=== PATIENT | female | born 1955 | race Caucasian/White ===

== ENCOUNTER 2023-11-15 06:11 | Day surgery (SDC) | payer OTHER ==
[2023-11-10 11:38] LABS: HEMATOCRIT 35.6 % (36.0-45.00); MEAN CELL VOLUME 99.2 fL (80.00-100.00); MEAN CORPUSCULAR HEMOGLOBIN 33.4 pg (27.00-32.0); MEAN CORPUSCULAR HGB CONC 33.7 g/dl (32.0-36.0); PLATELET COUNT 223 K/uL (150-450); RED BLOOD COUNT 3.59 M/uL (4.00-6.00); RED CELL DISTRIBUTION WIDTH 13.9 % (11.5-14.5)
[2023-11-10 12:15] LABS: ALBUMIN 4.1 gm/dL (3.4-5.0); BILIRUBIN TOTAL 0.67 mg/dL (0.3-1.2); CALCIUM 10.2 mg/dL (8.5-10.1); CREATININE SERUM 1.28 mg/dL (0.55-1.02); GFR 41.35; GLOBULINA 3.9 G/DL (2.4-3.5); POTASSIUM 4.5 mEq/L (3.5-5.1)
[2023-11-10 12:17] LABS: INR 1.02; PARTIAL THROMBOPLASTIN TIME 26.9 SECONDS (22.0-34.0); PROTHROMBIN TIME 10.7 SECONDS (9.0-11.5)
[2023-11-10 12:31] LABS: URINE APPEARANCE Cloudy; URINE BILIRRUBIN Negative (NEGATIVE); URINE BLOOD Negative; URINE COLOR Yellow; URINE LEUKOCYTE Moderate; URINE NITRATE Positive; URINE PROTEIN Negative (NEGATIVE); URINE UROBILINOGEN 0.2 E.U./dl
[2023-11-10 12:35] LABS: URINE EPITHELIAL CELLS 3.4 uL (0.0-38.8); URINE RBC 2.5 uL (0.0-20.8); URINE WBC 678.1 uL (0.0-23.2)
[2023-11-10 12:48] LABS: URINE BACTERIA > 9821.5 uL (0.0-1933); URINE GLUCOSE >=1000 MG/DL (NEGATIVE)
[~2023-11-15] VITALS: Ht 160 cm; Wt 73.9 kg
[~2023-11-15 06:11] MED LIST: AVAPRO300 MG PO; HUMULIN 70100 UNIT/2 IJ; KAPSPARGO SPRIN50 MG PO; PAXIL10 MG/5 ML PO; PLAVIX75 MG
[2023-11-15] MEDS ORDERED: CEFAZOLIN SODIUM 1,000 MG VIAL ONE (10:23)
[2023-11-15] MEDS ORDERED: CEFAZOLIN SODIUM 1,000 MG VIAL IV ONE (12:15)
[2023-11-15] MEDS ORDERED: SUGAMMADEX SODIUM 200 MG/2 ML VIAL IV ONE ×2 (13:03→13:15)
[2023-11-15] MEDS ORDERED: ENALAPRILAT DIHYDRATE 1.25 MG/ML VIAL IV ONE (13:58)
== END 2023-11-15 15:15 | disposition home or self-care (01) ==
LOC: CIR.AMB 06:11
PROVIDERS: ATTEND Surgery
DX: K81.1 Chronic cholecystitis (principal); Z88.6 Allergy status to analgesic agent

== ENCOUNTER 2024-11-21 08:34 | Emergency (ER) | payer OTHER ==
[~2024-11-21] VITALS: Ht 160 cm; Wt 68.5 kg
== END 2024-11-21 12:51 | disposition home or self-care (01) ==
LOC: ER 08:34
DX: G89.11 Acute pain due to trauma (principal); M25.562 Pain in left knee; M25.561 Pain in right knee; I10 Essential (primary) hypertension; E11.9 Type 2 diabetes mellitus without complications; Z79.4 Long term (current) use of insulin; Z88.6 Allergy status to analgesic agent

== ENCOUNTER 2025-02-09 10:12 | Outpatient (CLI) | payer OTHER | END 2025-02-09 10:20 | disposition home or self-care (01) | LOC: TOM 10:12 | DX: N20.0 Calculus of kidney (principal); N18.9 Chronic kidney disease, unspecified ==

== ENCOUNTER 2025-02-21 13:47 | Inpatient (IN) | payer OTHER ==
[~2025-02-21] VITALS: Ht 160 cm; Wt 78.0 kg
--- NOTE | 2025-02-21 16:09 | NUR ---
PTE ALERTA Y ORIENTADA X3 VIENE VERBALIZA TENER UN JARET DOLOR EN LOS RINONES ESTA ORINANDO SERENE Y VERBALIZA QUE TIENE JUAN EN LOS RINONEZ, S IVANEY ZACK S/V Y SE UBICA.
[2025-02-21] MEDS ORDERED: 0.9 % SODIUM CHLORIDE 500 ML IV ONE (16:45)
[2025-02-21] MEDS ORDERED: TAMSULOSIN HCL 0.4 MG CAP PO ONE ×2 (16:45→16:53)
[2025-02-21] MEDS ORDERED: ONDANSETRON HCL 2 MG/ML VIAL ONE (16:53)
[2025-02-21] MEDS ORDERED: CEFTRIAXONE SODIUM 2,000 MG VIAL ONE (16:54)
[2025-02-21] MEDS ORDERED: FAMOTIDINE/PF 20 MG/2 ML VIAL ONE (16:54)
[2025-02-21] MEDS ORDERED: CEFTRIAXONE SODIUM 2,000 MG VIAL IV ONE (17:00)
[2025-02-21] MEDS ORDERED: FAMOTIDINE/PF 20 MG/2 ML VIAL IV ONE (17:00)
[2025-02-21] MEDS ORDERED: ONDANSETRON HCL 2 MG/ML VIAL IV ONE (17:00)
--- NOTE | 2025-02-21 17:13 | NUR ---
SE ORIENTA PTE SOBRE TX MEDICO EL CUAL REFIERE ENTENDER.SE LE EXTRAEN MUESTRAS BAJO MEDIDAS ASEPTICAS,SE CANALIZA Y SE ADMINISTRAN MEDICAMENTOS.SE NOTIFICA CT PENDIENTE.SE ENTREGA ENVASE PARA UC PENDIENTE.
[2025-02-21 17:21] LABS: BASO % 0.3 % (0.1-1.2); EOS # 0.02 (0.04-0.54); EOS % 0.1 % (0.7-7.0); LYMPH # 0.87 (1.18-3.74); LYMPH % 5.5 % (19.3-53.1); MEAN PLATELET VOLUME 9.50 fl (9.4-12.4); MONO # 1.07 (0.24-0.82); MONO % 6.8 % (4.7-12.5); NEUT # 13.56 (1.56-6.13); NEUT % 86.4 % (34.0-71.1); RED CELL DISTRIBUTION WIDTH 12.6 % (11.6-14.4)
[2025-02-21 17:58] LABS: INR 1.09
[2025-02-21 18:04] LABS: COVID-19 AG NEGATIVE (NEGATIVE)
[2025-02-21 18:06] LABS: ALT/SGPT 20.0 U/L (12-78); AST/SGOT 12.0 U/L (15-37); BILIRUBIN TOTAL 0.69 mg/dL (0.3-1.2); BUN CREA RATIO 26.0 (7.0-25.0); CREATININE SERUM 1.52 mg/dL (0.55-1.02); GFR 33.81; GLOBULINA 4.6 G/DL (2.4-3.5); OSMOLALITY SERUM 291.0 MOSM/KG (275-295)
[2025-02-21 18:07] LABS: URINE APPEARANCE Cloudy; URINE BILIRRUBIN Negative (NEGATIVE); URINE BLOOD Large; URINE KETONE Negative (NEGATIVE); URINE LEUKOCYTE Large; URINE NITRATE Positive; URINE UROBILINOGEN 0.2 E.U./dl
[2025-02-21 18:08] LABS: URINE EPITHELIAL CELLS 9.6 uL (0.0-38.8); URINE RBC 646.8 uL (0.0-20.8); URINE WBC 828.3 uL (0.0-23.2)
[2025-02-21 18:10] LABS: GLUCOSE FASTING 204.0 mg/dL (65-100)
[2025-02-21 18:11] LABS: URINE BACTERIA > 9821.5 uL (0.0-1933); URINE CAST 0.14 uL (0.0-1.40); URINE GLUCOSE 250 MG/DL (NEGATIVE); URINE PROTEIN 100 (NEGATIVE)
[2025-02-21 18:33] LABS: URINE MUCUS MODERATE
[2025-02-21 18:37] LABS: URINE COLOR DK YELLOW
[2025-02-21 18:41] LABS: TYPE CELLS SQUAMOUS; URINE CRYSTALS FEW /HPF
[2025-02-21] MEDS ORDERED: INSULIN LISPRO 1,000 UNIT/10 ML UNITS SUBCUTANEO PRN ×2 (21:15→21:30)
[2025-02-21] MEDS ORDERED: 0.9 % SODIUM CHLORIDE 1,000 ML IV SCH (21:15)
[2025-02-21] MEDS ORDERED: ACETAMINOPHEN 500 MG GEL..CAP PO PRN (21:15)
[2025-02-21] MEDS ORDERED: MORPHINE SULFATE 4 MG/ML CARTRIDGE IV PRN (21:15)
[2025-02-21] MEDS ORDERED: DEXTROSE 50 % IN WATER 0.5 G/ML DISP.SYRIN IV PRN ×2 (21:15→21:30)
[2025-02-22 00:09] VITALS: BP 104/61; O2SAT 96
[2025-02-22 08:42] VITALS: BP 140/60
[2025-02-22] MEDS ORDERED: IRBESARTAN 150 MG TABLET PO SCH (09:00)
[2025-02-22] MEDS ORDERED: FAMOTIDINE/PF 20 MG in 0.9 % SODIUM CHLORIDE 8 ML IV PUSH SCH (09:00)
[2025-02-22] MEDS ORDERED: CEFTRIAXONE SODIUM 2,000 MG in 0.9 % SODIUM CHLORIDE 100 ML IV SCH (09:00)
[2025-02-22] MEDS ORDERED: METOPROLOL SUCCINATE 50 MG TAB.SR.24H PO SCH (09:00)
[2025-02-22] MEDS ORDERED: PAROXETINE HCL 10 MG TABLET PO SCH (09:00)
[2025-02-22] MEDS ORDERED: IRBESARTAN 300 MG TABLET PO SCH (09:00)
[2025-02-22 16:17] VITALS: BP 138/72
[2025-02-23] VITALS: BP 119/67; O2SAT 90
[2025-02-23 09:16] VITALS: BP 121/65
[2025-02-23 16:44] VITALS: BP 130/47; O2SAT 95
[2025-02-24 02:31] VITALS: BP 118/65; O2SAT 91
[2025-02-24 08:49] VITALS: BP 137/64; O2SAT 96
[2025-02-24 18:17] VITALS: BP 123/69; O2SAT 95
[2025-02-25 01:45] VITALS: BP 143/61; O2SAT 93
[2025-02-25 08:19] LABS: BASO % 0.5 % (0.1-1.2); EOS # 0.28 (0.04-0.54); EOS % 5.0 % (0.7-7.0); LYMPH # 1.08 (1.18-3.74); LYMPH % 19.1 % (19.3-53.1); MEAN PLATELET VOLUME 10.00 fl (9.4-12.4); MONO # 0.68 (0.24-0.82); MONO % 12.0 % (4.7-12.5); NEUT # 3.48 (1.56-6.13); NEUT % 61.6 % (34.0-71.1); RED CELL DISTRIBUTION WIDTH 12.7 % (11.6-14.4)
[2025-02-25 08:47] LABS: BUN CREA RATIO 29.0 (7.0-25.0); CREATININE SERUM 1.09 mg/dL (0.55-1.02); GFR 49.62; GLUCOSE FASTING 136.0 mg/dL (65-100); OSMOLALITY SERUM 296.0 MOSM/KG (275-295)
[2025-02-25 09:18] VITALS: BP 146/63; O2SAT 97
[2025-02-25 17:56] VITALS: BP 162/84; O2SAT 95
[2025-02-26 01:46] VITALS: BP 142/62; O2SAT 99
[2025-02-26 06:38] LABS: BASO % 0.6 % (0.1-1.2); EOS # 0.27 (0.04-0.54); EOS % 5.6 % (0.7-7.0); LYMPH # 1.16 (1.18-3.74); LYMPH % 24.3 % (19.3-53.1); MEAN PLATELET VOLUME 9.90 fl (9.4-12.4); MONO # 0.63 (0.24-0.82); NEUT # 2.58 (1.56-6.13); NEUT % 54.0 % (34.0-71.1); RED CELL DISTRIBUTION WIDTH 12.7 % (11.6-14.4)
[2025-02-26 07:24] LABS: MONO % 13.2 % (4.7-12.5)
[2025-02-26 08:09] VITALS: BP 154/77
[2025-02-26 16:01] LABS: ob NEGATIVE (NEGATIVE)
[2025-02-26 18:55] VITALS: BP 146/80; O2SAT 95
[2025-02-26 23:00] VITALS: BP 151/69; O2SAT 93
[2025-02-27] MEDS ORDERED: BUTALB/ACETAMINOPHEN/CAFFEINE 1 TAB TABLET PO STA (07:31)
[2025-02-27] MEDS ORDERED: BUTALB/ACETAMINOPHEN/CAFFEINE 1 TAB TABLET PO PRN (07:45)
[2025-02-27 09:26] VITALS: BP 117/70
[2025-02-27 10:24] LABS: BASO % 0.7 % (0.1-1.2); EOS # 0.28 (0.04-0.54); EOS % 4.6 % (0.7-7.0); LYMPH # 1.48 (1.18-3.74); LYMPH % 24.1 % (19.3-53.1); MEAN PLATELET VOLUME 9.80 fl (9.4-12.4); MONO # 0.65 (0.24-0.82); MONO % 10.6 % (4.7-12.5); NEUT # 3.45 (1.56-6.13); NEUT % 56.1 % (34.0-71.1); RED CELL DISTRIBUTION WIDTH 14.9 % (11.6-14.4)
[2025-02-27 11:07] LABS: BUN CREA RATIO 17.0 (7.0-25.0); CREATININE SERUM 0.93 mg/dL (0.55-1.02); GFR 59.6; OSMOLALITY SERUM 295.0 MOSM/KG (275-295)
[2025-02-27 11:18] LABS: GLUCOSE FASTING 217.0 mg/dL (65-100)
[2025-02-27 11:19] LABS: BAND MAN 5.0 %; LYMPHOCYTE MAN 25.0 %; MONOCYTE MAN 4.0 %; NEUTROPHILS MAN 56.0 %
[2025-02-27 11:20] LABS: EOSINOPHIL MAN 6.0 %
[2025-02-27] MEDS ORDERED: DEXTROSE 50 % IN WATER 0.5 G/ML VIAL IV PRN (14:00)
[2025-02-27 17:47] VITALS: BP 164/87
[2025-02-28 01:16] VITALS: BP 162/75; O2SAT 97
[2025-02-28 06:13] LABS: BASO % 0.8 % (0.1-1.2); EOS # 0.35 (0.04-0.54); EOS % 5.9 % (0.7-7.0); LYMPH # 1.71 (1.18-3.74); LYMPH % 29.0 % (19.3-53.1); MEAN PLATELET VOLUME 10.10 fl (9.4-12.4); MONO # 0.51 (0.24-0.82); MONO % 8.7 % (4.7-12.5); NEUT # 2.98 (1.56-6.13); NEUT % 50.7 % (34.0-71.1); RED CELL DISTRIBUTION WIDTH 14.8 % (11.6-14.4)
[2025-02-28 07:11] LABS: BAND MAN 8.0 %; LYMPHOCYTE MAN 26.0 %; MONOCYTE MAN 9.0 %; NEUTROPHILS MAN 48.0 %
[2025-02-28 07:12] LABS: EOSINOPHIL MAN 6.0 %; METAMYELOCYTE 1.0 %
[2025-02-28 08:55] VITALS: BP 166/84; O2SAT 93
== END 2025-02-28 11:27 | disposition home or self-care (01) | DRG 689 ==
LOC: ER 14:15 → MEDI 21:31 → SEC-K 21:31 → MEDI 23:25
PROVIDERS: General Practice; Student in an Organized Health Care Education/Training Program; ADMIT Internal Medicine; ATTEND Internal Medicine
PROC: BW21ZZZ Computerized Tomography (CT Scan) of Abdomen and Pelvis (ICD-10-PCS; principal; 2025-02-21)
PROC: 30233N1 Transfusion of Nonautologous Red Blood Cells into Peripheral Vein, Percutaneous Approach (ICD-10-PCS; 2025-02-26)
DX: N12 Tubulo-interstitial nephritis, not specified as acute or chronic (principal); A41.9 Sepsis, unspecified organism; N13.30 Unspecified hydronephrosis; E11.9 Type 2 diabetes mellitus without complications; Z79.4 Long term (current) use of insulin; I10 Essential (primary) hypertension; N39.0 Urinary tract infection, site not specified

== ENCOUNTER 2025-03-05 08:18 | Outpatient (CLI) | payer OTHER | END 2025-03-05 08:24 | disposition home or self-care (01) | LOC: RAD 08:18 | PROVIDERS: ATTEND Urology | DX: N20.0 Calculus of kidney (principal) ==

== ENCOUNTER 2025-07-16 10:15 | Outpatient (CLI) | payer OTHER | END 2025-07-16 10:21 | disposition home or self-care (01) | LOC: SONOGRAMA 10:15 | DX: N20.0 Calculus of kidney (principal) ==

== ENCOUNTER 2025-08-15 20:29 | Emergency (ER) | payer OTHER ==
[~2025-08-15] VITALS: Ht 160 cm; Wt 80.7 kg
[2025-08-15] MEDS ORDERED: NORVASC5 MG PO (20:50)
[2025-08-15] MEDS ORDERED: 0.9 % SODIUM CHLORIDE 1,000 ML IV SCH (21:45)
[2025-08-15] MEDS ORDERED: FAMOTIDINE/PF 20 MG/2 ML VIAL IV ONE (21:45)
[2025-08-15] MEDS ORDERED: CEFTRIAXONE SODIUM 1,000 MG VIAL IV ONE (21:45)
[2025-08-15] MEDS ORDERED: CEFTRIAXONE SODIUM 1,000 MG VIAL ONE (22:13)
[2025-08-15] MEDS ORDERED: FAMOTIDINE/PF 20 MG/2 ML VIAL ONE (22:13)
[2025-08-15 22:18] LABS: BASO % 0.7 % (0.1-1.2); EOS # 0.13 (0.04-0.54); EOS % 2.3 % (0.7-7.0); LYMPH # 2.04 (1.18-3.74); LYMPH % 35.8 % (19.3-53.1); MEAN PLATELET VOLUME 9.30 fl (9.4-12.4); MONO # 0.56 (0.24-0.82); MONO % 9.8 % (4.7-12.5); NEUT # 2.90 (1.56-6.13); NEUT % 50.9 % (34.0-71.1); RED CELL DISTRIBUTION WIDTH 11.1 % (11.6-14.4)
[2025-08-15 22:30] LABS: ERYTHROCYTE SEDIMENTATION RATE 38 mm/hr (0-30)
[2025-08-15 22:47] LABS: ALT/SGPT 29 U/L (12-78); AST/SGOT 29 U/L (15-37); BILIRUBIN TOTAL 0.44 mg/dL (0.3-1.2); BUN CREA RATIO 15 (7.0-25.0); CREATININE SERUM 1.51 mg/dL (0.55-1.02); GFR 33.97; GLOBULINA 4.5 G/DL (2.4-3.5); GLUCOSE FASTING 354 mg/dL (65-100); OSMOLALITY SERUM 291 MOSM/KG (275-295)
[2025-08-15 23:25] LABS: URINE APPEARANCE Clear; URINE BILIRRUBIN Negative (NEGATIVE); URINE BLOOD Trace; URINE COLOR Yellow; URINE KETONE Negative (NEGATIVE); URINE LEUKOCYTE Small; URINE NITRATE Negative; URINE PROTEIN 30 (NEGATIVE); URINE UROBILINOGEN 0.2 E.U./dl
[2025-08-15 23:29] LABS: URINE BACTERIA 1358.9 uL (0.0-1933); URINE EPITHELIAL CELLS 9.5 uL (0.0-38.8); URINE RBC 2.5 uL (0.0-20.8); URINE WBC 287.7 uL (0.0-23.2)
[2025-08-15 23:37] LABS: URINE CAST 0.14 uL (0.0-1.40); URINE GLUCOSE >=1000 MG/DL (NEGATIVE)
[2025-08-15 23:44] LABS: COVID-19 AG NEGATIVE (NEGATIVE)
[2025-08-15] MEDS ORDERED: INSULIN LISPRO 1,000 UNIT/10 ML UNITS SUBCUTANEO ONE (23:45)
[2025-08-16] MEDS ORDERED: INTESTINEX680 M1 PO (01:11)
[2025-08-16] MEDS ORDERED: PEPCID AC20 MG PO (01:11)
[2025-08-16] MEDS ORDERED: AMOX-CLAV 875-1 EACH PO (01:11)
== END 2025-08-16 01:48 | disposition home or self-care (01) ==
LOC: ER 20:29
PROVIDERS: Student in an Organized Health Care Education/Training Program
DX: N39.0 Urinary tract infection, site not specified (principal); R10.9 Unspecified abdominal pain; R30.0 Dysuria; R05.9 Cough, unspecified; E11.9 Type 2 diabetes mellitus without complications; Z79.4 Long term (current) use of insulin; Z88.6 Allergy status to analgesic agent; E11.65 Type 2 diabetes mellitus with hyperglycemia; Z20.822 Contact with and (suspected) exposure to COVID-19
CPT/HCPCS: 36415; 74176; 96365; 99284; J0696; J3490; J7030